=== PATIENT | female | born 1975 | race Caucasian/White ===

== ENCOUNTER 2017-06-09 14:36 | Emergency (ER) | payer MEDICAID, OTHER ==
[~2017-06-09] VITALS: Ht 162.6 cm; Wt 84.4 kg
[~2017-06-09 14:36] MED LIST: ALBU0.099 IH; IBUP-1842 PO
--- NOTE | 2017-06-09 15:00 | NUR ---
PT TRIAGED AMBULATED TO LOBBY WAITING FOR ER BED. ERMD NOTIFIED.
[2017-06-09 15:11] VITALS: BP 116/81
--- NOTE | 2017-06-09 16:09 | NUR ---
Patient to OF.
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
[2017-06-09] MEDS ORDERED: IBUPROFEN 800 MG TAB PO ONE (17:05)
--- NOTE | 2017-06-09 17:31 | NUR ---
joslyn bandage placed to right knee---encouraged to apply ice to right knee ecchymoses with 2 abrasions, mild swelling tender--- right shoulder pain tender, right elbow and right wrist pain tender no obvious deformities noted--no discoloration noted christina snow
== END 2017-06-09 17:15 | disposition home or self-care (01) ==
LOC: MED 14:36
DX: S46.911A Strain of unspecified muscle, fascia and tendon at shoulder and upper arm level, right arm, initial encounter (principal); S80.211A Abrasion, right knee, initial encounter; J45.909 Unspecified asthma, uncomplicated; Z79.899 Other long term (current) drug therapy; W01.0XXA Fall on same level from slipping, tripping and stumbling without subsequent striking against object, initial encounter; Y93.89 Activity, other specified; Y92.89 Other specified places as the place of occurrence of the external cause; Y99.8 Other external cause status
CPT/HCPCS: 73030; 73110; 73562; 99284

== ENCOUNTER 2017-09-21 10:03 | Emergency (ER) | payer OTHER ==
[~2017-09-21] VITALS: Ht 157.5 cm; Wt 86.2 kg
[2017-09-21 10:16] VITALS: BP 116/79
== END 2017-09-21 10:27 | disposition left against medical advice (07) ==
LOC: MED 10:03
DX: M25.511 Pain in right shoulder (principal); Z53.21 Procedure and treatment not carried out due to patient leaving prior to being seen by health care provider

== ENCOUNTER 2019-04-03 12:26 | Emergency (ER) | payer OTHER ==
[~2019-04-03] VITALS: Ht 162.6 cm; Wt 86.2 kg
[2019-04-03 12:31] VITALS: BP 117/83
[2019-04-03 15:03] VITALS: BP 123/78
== END 2019-04-03 14:58 | disposition home or self-care (01) ==
LOC: MED 12:26
DX: R05 Cough (principal); J45.909 Unspecified asthma, uncomplicated; Z79.899 Other long term (current) drug therapy
CPT/HCPCS: 99283

== ENCOUNTER 2021-05-24 12:02 | Emergency (ER) | payer OTHER ==
--- NOTE | 2021-05-24 12:39 | NUR ---
ATTEMPTED TO CALL PT AT THIS TIME IN LOBBY, NO ANSWER
--- NOTE | 2021-05-24 12:58 | NUR ---
CALLED PT AT THIS TIME, NO ANSWER
--- NOTE | 2021-05-24 13:32 | NUR ---
FINAL ATTEMPT TO CALL PT, NO ANSWER. PATIENT LEFT WITHOUT BEING SEEN BY DR. PULIDO. NO FURTHER CARE PROVIDED FOR PATIENT.
== END 2021-05-24 13:32 | disposition left against medical advice (07) ==
LOC: MED 12:02
DX: Z53.21 Procedure and treatment not carried out due to patient leaving prior to being seen by health care provider (principal)

== ENCOUNTER 2021-05-27 11:14 | Emergency (ER) | payer OTHER ==
[~2021-05-27] VITALS: Ht 165.1 cm; Wt 86.2 kg
[2021-05-27 11:52] VITALS: BP 123/78
--- NOTE | 2021-05-27 11:59 | NUR ---
X-RAY AT BEDSIDE.
--- NOTE | 2021-05-27 12:05 | NUR ---
PT TO X-RAY VIA WHEELCHAIR.
--- NOTE | 2021-05-27 12:35 | NUR ---
JESSICA LINDSEY AT BEDSIDE.
[2021-05-27] MEDS: KETOROLAC 30 MG/ML VIAL IM ONE (13:07)
[2021-05-27] MEDS ORDERED: IBUP-2213 PO (13:16)
[2021-05-27] MEDS ORDERED: ACET-8386 PO (13:16)
--- NOTE | 2021-05-27 13:30 | NUR ---
PT PLACED IN RIGHT ARM SLING.
--- NOTE | 2021-05-27 13:34 | NUR ---
Patient discharged with v/s stable. Written and verbal after care instructions given and explained. Patient alert, oriented and verbalized understanding of instructions. Ambulatory with steady gait. All questions addressed prior to discharge. ID band removed. Patient advised to follow up with PMD. Rx of IBUPROFEN given. Opportunity to ask questions provided and answered.
--- NOTE | 2021-05-27 13:40 | NUR ---
The patient's care was reviewed and supervised by Pina Novoa RN.
== END 2021-05-27 13:34 | disposition home or self-care (01) ==
LOC: MED 11:14
DX: S46.911A Strain of unspecified muscle, fascia and tendon at shoulder and upper arm level, right arm, initial encounter (principal); S46.811A Strain of other muscles, fascia and tendons at shoulder and upper arm level, right arm, initial encounter; J45.909 Unspecified asthma, uncomplicated; Z85.9 Personal history of malignant neoplasm, unspecified; Z79.899 Other long term (current) drug therapy; W18.09XA Striking against other object with subsequent fall, initial encounter; Y93.89 Activity, other specified; Y92.89 Other specified places as the place of occurrence of the external cause; Y99.8 Other external cause status
CPT/HCPCS: 73030; 73080; 96372; 99284; J1885; Q0092

== ENCOUNTER 2022-01-18 11:47 | Emergency (ER) | payer OTHER ==
[~2022-01-18 11:47] MED LIST changes: +IBUP-2213 PO
--- NOTE | 2022-01-18 11:57 | NUR ---
CALLED IN LOBBY FOR TRIAGE FOR FIRST TIME, NO ANSWER. SAW MADE AWARE.
--- NOTE | 2022-01-18 12:07 | NUR ---
PT CALLED FOR SECOND TIME IN LOBBY, NO ANSWER. ERMD MADE AWARE.
--- NOTE | 2022-01-18 12:17 | NUR ---
PT CALLED FOR THIRD TIME IN LOBBY, NO ANSWER. PT LWBS. SAW MADE AWARE.
== END 2022-01-18 11:57 | disposition left against medical advice (07) ==
LOC: MED 11:47
DX: R53.1 Weakness (principal); Z53.21 Procedure and treatment not carried out due to patient leaving prior to being seen by health care provider

== ENCOUNTER 2022-10-26 11:11 | Emergency (ER) | payer OTHER ==
[~2022-10-26] VITALS: Ht 157.5 cm; Wt 82.1 kg
[2022-10-26 11:13] VITALS: BP 141/81
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
[2022-10-26] MEDS ORDERED: CEPH-588 PO (12:13)
[2022-10-26] MEDS ORDERED: BACITRACIN OINT 500 UNITS/GM PKT TP ONE (12:15)
== END 2022-10-26 12:49 | disposition home or self-care (01) ==
LOC: MED 11:11
DX: S90.821A Blister (nonthermal), right foot, initial encounter (principal); J45.909 Unspecified asthma, uncomplicated; Z79.899 Other long term (current) drug therapy; X58.XXXA Exposure to other specified factors, initial encounter; Y93.89 Activity, other specified; Y92.89 Other specified places as the place of occurrence of the external cause; Y99.8 Other external cause status
CPT/HCPCS: 99283